=== PATIENT | male | born 1980 | race Caucasian/White ===

== ENCOUNTER 2020-09-30 12:07 | Emergency (ER) | payer BC, SELFPAY | END 2020-09-30 12:59 | disposition home or self-care (01) | LOC: BURERS 12:07 | DX: K04.7 Periapical abscess without sinus (principal) | CPT/HCPCS: 99283 ==

== ENCOUNTER 2021-03-04 00:04 | Emergency (ER) | payer SELFPAY ==
[2021-03-04] MEDS ORDERED: Fentanyl 100 MCG/2 ML VIAL ONE (00:13)
[2021-03-04 03:58] LABS: SARS-CoV-2 NAA Rapid Test Not Detected (NotDetected)
== END 2021-03-04 02:25 | disposition short-term general hospital (02) ==
LOC: BURERS 00:04
DX: S92.002A Unspecified fracture of left calcaneus, initial encounter for closed fracture (principal); S92.001A Unspecified fracture of right calcaneus, initial encounter for closed fracture; Z20.822 Contact with and (suspected) exposure to COVID-19; W19.XXXA Unspecified fall, initial encounter
CPT/HCPCS: 29515; 96374; J3010; U0002